=== PATIENT | male | born 1955 | race Native Hawaiian/Other Pacific Islander ===

== ENCOUNTER 2017-03-01 06:30 | Day surgery (SDC) | payer OTHER ==
[2017-03-01 07:32] VITALS: BMI 26.9
[2017-03-01 07:45] VITALS: O2SAT 100
[2017-03-01] MEDS ORDERED: Lactated Ringer's 500 ML IV SCH (08:00)
[2017-03-01] MEDS ORDERED: Propofol 10 mg/ml Inj (20 ML) ONE (08:03)
[2017-03-01] MEDS ORDERED: Lactated Ringer's 500 ML IV ONE ×2 (08:11)
[2017-03-01] MEDS ORDERED: ePHEDrine 50 mg/ml Inj ONE (08:13)
[2017-03-01 08:42] VITALS: TEMP 97
[2017-03-01 08:56] VITALS: RESP 16
[2017-03-01 09:48] VITALS: BP 117/64; PULSE 67
== END 2017-03-01 09:40 | disposition home or self-care (01) ==
LOC: C.ENDO 06:30
PROVIDERS: ATTEND Internal Medicine Gastroenterology
DX: K29.50 Unspecified chronic gastritis without bleeding (principal); K64.8 Other hemorrhoids; K20.9 Esophagitis, unspecified
CPT/HCPCS: 43239; 88305; 88312; 88342; J2704; J3010; J7120